=== PATIENT | female | born 1990 | race Caucasian/White ===

== ENCOUNTER → 2018-05-13 | Outpatient (CLI) | payer MEDICAID ==
[2018-05-13 10:47] LABS: Basophils % (A) 0 %; Eosinophils # (A) 0.2 k/uL (0-0.7); Eosinophils % (A) 3 %; HCT 46.2 % (34.0-46.0); HGB 15.1 gm/dL (11.4-16.0); Lymphocytes % (A) 17 %; MCH 30.2 pg (25.0-35.0); MCHC 32.6 g/dL (31.0-37.0); MCV 92.6 fL (80.0-100.0); Mean Platelet Volume 11.1; Monocytes # (A) 0.3 k/uL (0-1.0); Monocytes % (A) 5 %; Neutrophils # (A) 4.1 k/uL (1.3-7.7); Neutrophils % (A) 72 %; Platelet Count 147 k/uL (150-450); RBC 4.99 m/uL (3.80-5.40); WBC 5.7 k/uL (3.8-10.6)
[2018-05-13 12:05] LABS: Large Platelets Present
[2018-05-13 18:23] LABS: Albumin 4.4 g/dL (3.80-4.90); Albumin/Globulin Ratio 2.44 (1.60-3.17); Anion Gap 12.3 mmol/L (4.00-12.00); Calcium 9.3 mg/dL (8.7-10.3); Carbon Dioxide 24.7 mmol/L (21.6-31.8); Globulin 1.8 g/dL (1.6-3.3); LDL Cholesterol,Calculated 93.6 mg/dL (0.0-131.0); Potassium 4.1 mmol/L (3.5-5.5); Total Bilirubin 0.5 mg/dL (0.2-1.2); Total Protein 6.2 g/dL (6.2-8.2); VLDL Calculation 19.4 mg/dL (5.00-40.00)
== END | disposition home or self-care (01) ==
LOC: LABWHC1 09:48
PROVIDERS: ATTEND Family Medicine
DX: Z00.00 Encounter for general adult medical examination without abnormal findings (principal); R10.13 Epigastric pain
CPT/HCPCS: 36415; 80053; 80061; 82150; 82306; 83690; 85025

== ENCOUNTER → 2018-10-28 | Outpatient (CLI) | payer MEDICAID, BC ==
--- NOTE | 2018-10-28 12:02 | US ---
EXAMINATION TYPE: Transabdominal DATE OF EXAM: 10/28/2018 11:33 AM COMPARISON: NONE CLINICAL HISTORY: O46.91 BLEEDING,SPOTTING. Positive beta-hCG test. EXAM PERFORMED: Transabdominal (TA) EXAM MEASUREMENTS: GESTATIONAL AGE / DATING Physician Established: Not yet established Dates by LMP: LMP does not correlate Dates by First Scan: No previous Dates by Current Scan for: (9 weeks/4 days) EDC: 05/29/2019 MATERNAL ANATOMY Uterus: 10.6 x 6.1 x 7.9 cm Right Ovary: 3.1 x 2.3 x 2.3 cm Left Ovary: 2.9 x 1.5 x 1.1 cm Post CDS / Adnexa: wnl Presence of free fluid: No Presence of corpus luteal cyst: Yes, right ovary measuring 2.1 x 1.8 x 1.6 cm Presence of subchorionic bleed: Yes, measuring 1.4 x 0.5 x 0.9 cm GESTATION / SURVEY CRL: 2.7 cm (9 weeks/4 days) Yolk Sac (normal less than 6mm): 3 mm Heart Rate: 169 bpm Rhythm: Normal IUP: Viable IUP Date of LMP: Unsure Beta HcG (if available): Not available at this time Single live intrauterine gestation is confirmed as gestational sac, yolk sac, and pole are pres ent. Adjacent to gestational sac there is a tiny curvilinear fluid collection measuring 1.4 x 0.5 x 0 .9 cm towards end of study could reflect implantation bleed or small subchorionic hemorrhage. No free fluid in pelvic cul-de-sac. Both ovaries are seen. Within the right ovary there is 2.0 cm hypoechoic lesion felt to reflect corpu s luteal cyst. No suspicious extraovarian adnexal masses are noted. Preliminary results called to Dr. Quiñonez at time of exam. IMPRESSION: Single live intrauterine gestation is confirmed, mean crown-rump length is 2.7 cm corresp onding to 9 week 4 day old fetus.
[2018-10-28 12:23] LABS: HCT 39.7 % (34.0-46.0); HGB 13.7 gm/dL (11.4-16.0); MCHC 34.4 g/dL (31.0-37.0); MCV 90.2 fL (80.0-100.0); Mean Platelet Volume 12.4; RDW 12.9 % (11.5-15.5); WBC 5.4 k/uL (3.8-10.6)
[2018-10-28 12:24] LABS: African American GFR (CKD) >90 (>60 ml/min/1.73 sqM); Glucose 84 mg/dL (74-99)
[2018-10-28 13:21] LABS: Platelet Count 97 k/uL (150-450)
[2018-10-28 20:55] LABS: HIV 1 AB Non-Reactive (Non-Reactive); HIV AB P24 Non-Reactive (Non-Reactive); HIV P24 AG Non-Reactive (Non-Reactive)
[2018-10-29 07:17] LABS: Toxoplasma Antibody (IgG) <3.0 IU/mL (<7.2); Toxoplasma Antibody (IgM) <3.0 AU/mL (<8.0)
== END | disposition home or self-care (01) ==
LOC: RADUSWWP 11:04
PROVIDERS: ATTEND Obstetrics & Gynecology
DX: O46.91 Antepartum hemorrhage, unspecified, first trimester (principal); Z3A.09 9 weeks gestation of pregnancy
CPT/HCPCS: 36415; 76801; 82565; 82947; 85027; 86762; 86777; 86778; 86780; 86850; 86900; 86901; 87340; 87390

== ENCOUNTER → 2019-01-03 | Outpatient (CLI) | payer MEDICAID, BC ==
[2019-01-03 17:42] LABS: HCT 33.6 % (34.0-46.0); HGB 11.9 gm/dL (11.4-16.0); MCH 31.6 pg (25.0-35.0); MCHC 35.3 g/dL (31.0-37.0); MCV 89.5 fL (80.0-100.0); Mean Platelet Volume 11.2; RBC 3.75 m/uL (3.80-5.40); RDW 14.1 % (11.5-15.5); WBC 7.3 k/uL (3.8-10.6)
[2019-01-03 20:00] LABS: Platelet Count 98 k/uL (150-450)
--- NOTE | 2019-01-04 08:18 | US ---
EXAMINATION TYPE: US OB anatomy transabd DATE OF EXAM: 01/03/2019 COMPARISON: 10/28/2018 pelvic ultrasound HISTORY: O36.62X0 large for dates Anatomy scan TECHNIQUE: Transabdominal grayscale ultrasound of the gravid uterus. EXAM MEASUREMENTS: GESTATIONAL AGE / DATING Physician Established: (19 weeks/1 days) EDC: 05/29/2019 Dates by First Scan: (19 weeks/1 days) EDC: 05/29/2019 Dates by Current Scan for: (19 weeks/2 days) EDC: 05/28/2019 SURVEY IUP: Single PLACENTA: Anterior PREVIA: No previa MARCELLUS: 16.0 cm Normal CERVICAL LENGTH (transabdominal: norm > 3.0cm): 3.6 cm BIOMETRY LIE: Transverse lie with head maternal Rt BPD: 4.4 cm 19 weeks / 3 days HC: 16.4 cm 19 weeks / 1 days AC: 14.0 cm 19 weeks / 3 days FL: 2.9 cm 19 weeks / 0 days ESTIMATED WEIGHT IN GRAMS: 278 grams ESTIMATED WEIGHT IN LBS/OZ: lbs. 10 oz. WEIGHT PERCENTAGE BASED ON ESTABLISHED DATE: 47 % HC/AC: 1.2 Normal FL/AC: 21% HEART RATE: 158 bpm RHYTHM: Normal ANATOMY SEEN (within normal limits): * Lateral Vent (< 1 cm) 0.5 cm * Cisterna Magna (< 1.1 cm) 0.3 cm * Nuchal Fold (< 0.6 cm) 0.2 cm * Cerebellum (varies with age) 2.0 cm Choroid Plexus (bilateral) Midline Falx Cavus Septi Pellucidi Four Chamber Heart Outflow tracts: LVOT/RVOT Stomach Situs Nose / Lips Diaphragm Kidneys (bilateral) Bladder Cord Insert Three Vessel Cord Longitudinal Spine Transverse Spine Arms (bilateral) Legs (bilateral) ANATOMY SEEN (does not appear within normal limits): None ANATOMY NOT SEEN: None Single live IUP measuring 19 weeks 2 days IMPRESSION: Single live intrauterine with a sonographic age of 19 weeks and 2 days and myla mated date of delivery of 05/28/2019, concordant with menstrual age. Unremarkable anatomy ultrasound. W e percentage based on established dates of 47%. Amniotic fluid index of 16.0.
== END | disposition home or self-care (01) ==
LOC: RADUSWWP 16:17
PROVIDERS: ATTEND Obstetrics & Gynecology
DX: O36.62X0 Maternal care for excessive fetal growth, second trimester, not applicable or unspecified (principal); Z3A.19 19 weeks gestation of pregnancy
CPT/HCPCS: 36415; 76811; 85027; 86787

== ENCOUNTER → 2019-02-21 | Outpatient (CLI) | payer MEDICAID, BC ==
[2019-02-21 10:17] LABS: HGB 11.8 gm/dL (11.4-16.0); MCH 31.3 pg (25.0-35.0); MCHC 34.8 g/dL (31.0-37.0); MCV 90.1 fL (80.0-100.0); Mean Platelet Volume 11.4; Poikilocytosis Slight; RBC 3.78 m/uL (3.80-5.40); RDW 14.4 % (11.5-15.5); WBC 6.7 k/uL (3.8-10.6)
[2019-02-21 11:21] LABS: Platelet Count 95 k/uL (150-450)
== END ==
LOC: LABWHC1 08:49
PROVIDERS: ATTEND Obstetrics & Gynecology
DX: Z34.82 Encounter for supervision of other normal pregnancy, second trimester (principal); Z3A.00 Weeks of gestation of pregnancy not specified
CPT/HCPCS: 36415; 82950; 85027

== ENCOUNTER → 2019-02-24 | Outpatient (CLI) | payer MEDICAID, BC ==
[2019-02-24 13:13] LABS: Glucose 3 Hour, Gest 48 mg/dL
== END | disposition home or self-care (01) ==
LOC: LABWHC1 08:37
PROVIDERS: ATTEND Obstetrics & Gynecology
DX: O24.419 Gestational diabetes mellitus in pregnancy, unspecified control (principal); Z3A.00 Weeks of gestation of pregnancy not specified
CPT/HCPCS: 36415; 82951; 82952

== ENCOUNTER → 2019-04-26 | Outpatient (CLI) | payer MEDICAID, BC ==
[2019-04-26 16:26] LABS: HCT 36.9 % (34.0-46.0); HGB 12.3 gm/dL (11.4-16.0); MCH 29.4 pg (25.0-35.0); MCHC 33.4 g/dL (31.0-37.0); MCV 88.1 fL (80.0-100.0); Mean Platelet Volume 16.1; RBC 4.19 m/uL (3.80-5.40); RDW 13.6 % (11.5-15.5); WBC 9.5 k/uL (3.8-10.6)
[2019-04-26 16:55] LABS: Platelet Count 97 k/uL (150-450)
--- NOTE | 2019-04-27 07:57 | US ---
EXAMINATION TYPE: US OB >= 14 wk fetus DATE OF EXAM: 04/26/2019 COMPARISON: None CLINICAL HISTORY: O36.63X0 LARGE FOR DATESLarge for dates. TECHNIQUE: Transabdominal (TA) GESTATIONAL AGE / DATING Physician Established: (35 weeks/2 days) EDC: 05/29/2019 Dates by LMP: 35 weeks/2 days) EDC: 05/29/2019 Dates by First Scan: (9 weeks/3 days) EDC: 04/30/2019 Dates by Current Scan: (35 weeks/1 days) EDC: 05/30/2019 SURVEY IUP: Single PLACENTA: Anterior PREVIA: No Previa MARCELLUS: cm 13.70 cm CERVICAL LENGTH (transabdominal: norm > 3.0cm): Not well visualized due to shadowing. BIOMETRY PRESENTATION: Vertex LIE: Longitudinal BPD: 9.1 cm 37 weeks / 0 days HC: 26.3 cm 28 weeks / 5 days AC: 35.5 cm 39 weeks / 3 days FL: 6.8 cm 35 weeks / 0 days ESTIMATED WEIGHT IN GRAMS: 3031 grams ESTIMATED WEIGHT IN LBS/OZ: 6 lbs. 11 oz. WEIGHT PERCENTAGE BASED ON ESTABLISHED DATES: 87% HC/AC: 0.74cm Normal FL/AC: 19% Normal HEART RATE: 129 bpm RHYTHM: Normal IMPRESSION: Single live intrauterine with a sonographic age of 35 weeks and 1 day and estim ated date of delivery of 05/30/2019. Weight percentage based on established dates of 87%. Amniotic flui d adnexa 13.7.
== END | disposition home or self-care (01) ==
LOC: RADUSWWP 15:43
PROVIDERS: ATTEND Obstetrics & Gynecology
DX: O36.63X0 Maternal care for excessive fetal growth, third trimester, not applicable or unspecified (principal); Z34.83 Encounter for supervision of other normal pregnancy, third trimester; Z3A.35 35 weeks gestation of pregnancy
CPT/HCPCS: 36415; 76805; 85027

== ENCOUNTER → 2019-05-09 | Outpatient (CLI) | payer MEDICAID, BC ==
--- NOTE | 2019-05-09 16:18 | US ---
EXAMINATION TYPE: US OB >= 14 wk fetus DATE OF EXAM: 05/09/2019 COMPARISON: US 04/26/19 CLINICAL HISTORY: 29-year-old female O36.63X0 large for dates, 3rd Trimester TECHNIQUE: Transabdominal (TA) FINDINGS: GESTATIONAL AGE / DATING Physician Established: (37 weeks/1 days) EDC: 05/29/2019 Dates by LMP: 08/22/18 (37 weeks/1 days) EDC: 05/29/2019 Dates by First Scan: (37 weeks/1 days) EDC: 05/29/2019 Dates by Current Scan: (36 weeks/3 days, 3 days less growth than expected from 04/26/2019) EDC: 06/02/2019 Beta HCG (if available): Not available SURVEY IUP: Single PLACENTA: Anterior PREVIA: No Previa MARCELLUS: 19.7 cm Normal CERVICAL LENGTH (transabdominal: norm > 3.0cm): 3.0 cm BIOMETRY PRESENTATION: Vertex LIE: Longitudinal BPD: 9.2 cm 37 weeks / 2 days HC: 32.1 cm 36 weeks / 1 days AC: 34.9 cm 38 weeks / 5 days FL: 7.0 cm 36 weeks / 0 days ESTIMATED WEIGHT IN GRAMS: 3279 grams ESTIMATED WEIGHT IN LBS/OZ: 7 lbs. 4 oz. WEIGHT PERCENTAGE BASED ON ESTABLISHED DATES: 71.5% HC/AC: 0.92 Normal FL/AC: 20.2 Normal HEART RATE: 139 bpm RHYTHM: Normal IMPRESSION: Single lead intrauterine with estimated gestational age of 37 weeks 1 day by LMP. Current u ltrasound biometry is slightly smaller but concordant (36 weeks 3 days) placing the child at the 72nd percentile for weight but with 3 days less growth than expected from 04/26/2019.
== END | disposition home or self-care (01) ==
LOC: RADUSWWP 14:56
PROVIDERS: ATTEND Obstetrics & Gynecology
DX: O36.63X0 Maternal care for excessive fetal growth, third trimester, not applicable or unspecified (principal); Z3A.37 37 weeks gestation of pregnancy
CPT/HCPCS: 76805

== ENCOUNTER 2019-05-29 11:40 | Inpatient (IN) | payer MEDICAID, BC ==
[2019-05-31] MEDS ORDERED: CARBOPROST TROMETHAMINE 250 MCG/ML 1 ML AMP IM PRN (05:56)
[2019-05-31] MEDS ORDERED: LIDOCAINE 0.5% (PF) 5 MG/ML (50 ML SDV) SQ PRN (05:56)
[2019-05-31] MEDS ORDERED: METHYLERGONOVINE 0.2 MG/ML 1 ML AMP IM PRN (05:56)
[2019-05-31] MEDS ORDERED: OXYTOCIN 10 UNIT/ML 1 ML VIAL IM PRN (05:56)
[2019-05-31] MEDS ORDERED: OXYTOCIN 30 UNITS/500 ML NS 30 UNIT in SALINE 1 500ML.BAG IV SCH (05:56)
[2019-05-31] MEDS ORDERED: TERBUTALINE 1 MG/ML VIAL SQ PRN (05:56)
[2019-05-31] MEDS: LACTATED RINGERS 1,000 ML IV SCH ×2 (06:12→13:33)
[2019-05-31 06:34] LABS: HCT 40.9 % (34.0-46.0); HGB 13.5 gm/dL (11.4-16.0); MCH 29.2 pg (25.0-35.0); MCV 88.4 fL (80.0-100.0); Mean Platelet Volume 16.1; Platelet Count 108 k/uL (150-450); RBC 4.63 m/uL (3.80-5.40); RDW 13.3 % (11.5-15.5); WBC 8.9 k/uL (3.8-10.6)
--- NOTE | 2019-05-31 06:34 | P.HPOB ---
History of Present Illness H&P Date: 05/31/19 Chief Complaint: Requested induction of labor. This patient is a pleasant 29-year-old 3 para 2 female estimated date of confinement 05/29/2019 estimated gestational age 40-2/7 weeks who presents to labor and delivery for requested induction of labor. Patient's is been complicated by known thrombocytopenia. This is a chronic condition for this patient and her platelets have never dipped below 95. This is also been present with previous deliveries. Patient's care has otherwise been uncomplicated. Review of Systems Genitourinary: Reports Menstruation: Reports amenorrhea Past Medical History Additional Past Medical History / Comment(s): Mild thrombocytopenia, associated. This is a chronic condition and did not significant enough to warrant treatment. History of Any Multi-Drug Resistant Organisms: MRSA Date of last positivie culture/infection: 2015 MDRO Source:: Buttocks Additional Past Surgical History / Comment(s): Oral surgery Past Anesthesia/Blood Transfusion Reactions: No Reported Reaction Past Psychological History: No Psychological Hx Reported Smoking Status: Never smoker Past Alcohol Use History: None Reported Past Drug Use History: None Reported - Past Family History Father Family Medical History: No Reported History Medications and Allergies Home Medications Medication Instructions Recorded Confirmed Type Pnv,Calcium 72/Iron/Folic Acid 1 tab PO DAILY 11/02/14 05/31/19 History [ Plus Tablet] Omeprazole 20 mg PO DAILY 05/31/19 05/31/19 History Allergies Allergy/AdvReac Type Severity Reaction Status Date / Time No Known Allergies Allergy Verified 05/31/19 05:56 Exam Vital Signs Temp Pulse Resp BP Pulse Ox 05/31/19 06:01 96.5 F L 76 16 116/71 97 Intake and Output 05/30/19 05/30/19 05/31/19 14:59 22:59 06:59 Other: # Voids 1 Weight 72.575 kg - OBG Physical Exam Abdomen: bowel sounds normal, no diffuse tenderness, no bruit present, no guarding noted, no hepatomegaly, no splenomegaly, no mass Vulva: both: normal Vagina: normal moisture, no discharge Cervix: no lesion (Cervix is 250% effaced and -2 station), no discharge Uterus: enlarged (Fundal height is 40 cm) Results blood work shows she is B positive, rubella immune, RPR nonreactive, hepatitis B negative, HIV is nonreactive, Glucola was abnormal with a very no rmal three-hour gtt., group B strep was negative, ultrasounds have been normal, platelets have ranged from 95-98. Assessment and Plan Assessment: This is a pleasant 29-year-old 3 para 2 female 40-2/7 weeks gestation who presents to labor and delivery for requested induction of labor. Patient also has known thrombocytopenia and we'll check her platelets this morning. She understands she very well may not be a candidate for regional anesthetic. At this point plan is induction of labor and anticipate vaginal delivery. (1) 40 weeks gestation of Current Visit: Yes Status: Acute Code(s): Z3A.40 - 40 WEEKS GESTATION OF SNOMED Code(s): 85249265 (2) Elective induction of labor planned Current Visit: No Status: Acute Code(s): XXU7826 - SNOMED Code(s): 113990479 (3) Thrombocytopenia affecting , antepartum Current Visit: No Status: Chronic Code(s): O99.119 - OTH DIS OF BLD/BLD-FORM ORG/IMMUN MECHNSM COMP PREG,UNSP TRI SNOMED Code(s): 022028513
[2019-05-31 07:27] LABS: Band Neutrophils % 3 %; Large Platelets Present; Lymphocytes # (M) 1.96 k/uL (1.0-4.8); Monocytes # (M) 0.27 k/uL (0-1.0); Neutrophils % (M) 72 %; Nucleated Red Blood Cells 0 /100 WBC (0-0); Total Cells Counted 100
[2019-05-31] MEDS ORDERED: BUTORPHANOL 1 MG/ML 1 ML VIAL IV PRN (11:50)
[2019-05-31] MEDS ORDERED: ACETAMINOPHEN TAB 325 MG TAB PO PRN (14:36)
[2019-05-31] MEDS ORDERED: diphenhydrAMINE 50 MG/ML 1 ML VIAL IVP PRN (14:36)
[2019-05-31] MEDS ORDERED: ZOLPIDEM 5 MG TAB PO PRN (14:36)
[2019-05-31] MEDS ORDERED: OXYTOCIN 20 UNITS/1000 ML NS 1,000 ML IV SCH (14:36)
[2019-05-31] MEDS ORDERED: HYDROCORTISONE 2.5% RECTAL CREAM 30 GM TUBE RECTAL PRN (14:36)
[2019-05-31] MEDS ORDERED: BISACODYL 10 MG SUPP RECTAL PRN (14:36)
[2019-05-31] MEDS ORDERED: SIMETHICONE 80 MG CHEWABLE PO PRN (14:36)
[2019-05-31] MEDS ORDERED: BENZOCAINE/MENTHOL SPRAY 1 GM/SPRAY AEROSOL TOPICAL PRN (14:36)
[2019-05-31] MEDS ORDERED: WITCH HAZEL 1 EACH MED..PAD TOPICAL PRN (14:36)
[2019-05-31] MEDS ORDERED: LANOLIN CREAM 5 GM TUBE TOPICAL PRN (14:36)
[2019-05-31] MEDS ORDERED: diphenhydrAMINE 25 MG CAP PO PRN (14:36)
[2019-05-31] MEDS: IBUPROFEN 600 MG TAB PO PRN ×2 (14:40→22:12)
--- NOTE | 2019-05-31 18:43 | P.PROBDLV ---
Vaginal Delivery Note - . Vaginal Delivery Note: Normal vaginal delivery viable male infant Apgars 9 and 9 delivery time is 1400 hrs. Please see dictated H&P for intimate details of this patient's admission. Brief summary this is a pleasant 29-year-old 3 para 2 female estimated gestational age 40-2/7 weeks who presents to labor and delivery for induction of labor. On admission patient is 2 cm dilated has artificial rupture membranes for clear fluid. Labor is induced with Pitocin per protocol. Platelets on admission are actually elevated above her normal at 108. Patient's labor progresses and she gets to complete and pushes for approximately 5 minutes. Patient pushes the head to the perineum and the posterior perineum is supported and we have controlled delivery of the 's head over the intact perineum. Mouth and nares are bulb suctioned. There is no evidence of a nuchal cord. With gentle downward traction we then have deliver the anterior posterior shoulder and rest this 's body. Infant is late on the mother's abdomen. Vigorous viable male infant Apgars are 9 and 9 delivery time is 1400 hrs. After delivery of the the umbilical cords allowed to quit pulsating is then doubly clamped and cut. The placenta is then spontaneously delivered intact and then Pitocin is started. Placenta appears to be trivascular. Inspection of perineum shows a first-degree laceration which is repaired with 3-0 Vicryl usual fashion. Excellent reapproximation is noted. Estimated blood loss from delivery was approximately 200 mL. There are no complications. Infant and mother stable delivery room. All counts are correct 3.
[2019-05-31] MEDS: SENNOSIDES-DOCUSATE SODIUM 1 EACH TAB PO SCH (19:41)
[2019-06-01] MEDS: IBUPROFEN 600 MG TAB PO PRN ×2 (06:07→11:46)
--- NOTE | 2019-06-01 06:49 | P.PNOBGVD ---
Subjective - Subjective Patient reports: Reports appetite normal, Reports voiding normally, Reports pain well controlled, Reports ambulating normally : doing well Objective - Latest Vital Signs Latest vital signs: Vital Signs Temp Pulse Resp BP 06/01/19 00:00 97.9 F 80 16 105/64 05/31/19 20:00 97.8 F 85 16 122/72 05/31/19 16:15 83 16 117/73 05/31/19 15:40 83 16 118/67 05/31/19 15:14 97.3 F L 86 16 121/69 05/31/19 15:05 83 16 121/64 05/31/19 14:48 90 16 123/65 05/31/19 14:31 94 16 124/64 05/31/19 14:15 97.3 F L 98 16 105/67 Intake and Output 05/31/19 05/31/19 06/01/19 14:59 22:59 06:59 Output Total 200 Balance -200 Output: Estimated Blood Loss 200 Other: # Voids 1 - Exam Lungs: bilateral: normal Chest: Normal S1, Normal S2 Extremities: Present: normal Abdomen: Present: normal appearance, soft Uterus: Present: normal, firm - Labs Labs: Abnormal Lab Results - Last 24 Hours (Table) 05/31/19 Range/Units 06:00 Plt Count 108 L (150-450) k/uL Assessment and Plan Assessment: day #1. Patient is resting without complaints. Vital signs are stable and she is afebrile and she wishes to go home. Uterus is firm nontender she's having normal lochia. CBC is pending at this time. Plan is to continue routine care, check a CBC, most likely discharge home later today (1) 40 weeks gestation of Current Visit: Yes Status: Acute Code(s): Z3A.40 - 40 WEEKS GESTATION OF SNOMED Code(s): 66428424 (2) Elective induction of labor planned Current Visit: No Status: Acute Code(s): QNE6418 - SNOMED Code(s): 229432999 (3) Thrombocytopenia affecting , antepartum Current Visit: No Status: Chronic Code(s): O99.119 - OTH DIS OF BLD/BLD-FORM ORG/IMMUN MECHNSM COMP PREG,UNSP TRI SNOMED Code(s): 277549747
--- NOTE | 2019-06-01 07:04 | P.DS ---
Providers Date of admission: 05/31/19 05:50 Expected date of discharge: 06/01/19 Attending physician: Antony Quiñonez Primary care physician: Stated None - Discharge Diagnosis(es) (1) 40 weeks gestation of Current Visit: Yes Status: Acute (2) Elective induction of labor planned Current Visit: No Status: Acute (3) Thrombocytopenia affecting , antepartum Current Visit: No Status: Chronic Hospital Course: Please see dictated H&P for intimate details of this patient's admission. In brief summary is a pleasant 29-year-old 3 para 2 female 40-2/7 weeks gestation admitted to labor and delivery for induction of labor. Patient is admitted and her platelets are 108. She has known chronic thrombocytopenia. Patient has uncomplicated induction of labor goes on have a vaginal delivery viable male . Please dictated delivery note. day 1 patient's felt be stable for discharge home follow up with me in 6 weeks. Procedures: Induction of labor and normal vaginal delivery Patient Condition at Discharge: Good Plan - Discharge Summary New Discharge Prescriptions: New Ibuprofen [Motrin] 600 mg PO Q6HR PRN #30 tab PRN Reason: Mild Pain Or Fever >= 100.5 No Action Pnv,Calcium 72/Iron/Folic Acid [ Plus Tablet] 1 tab PO DAILY Omeprazole 20 mg PO DAILY Discharge Medication List Pnv,Calcium 72/Iron/Folic Acid [ Plus Tablet] 1 tab PO DAILY 11/02/14 [History] Omeprazole 20 mg PO DAILY 05/31/19 [History] Ibuprofen [Motrin] 600 mg PO Q6HR PRN #30 tab 06/01/19 [Rx] Follow up Appointment(s)/Referral(s): Antony Quiñonez MD [STAFF PHYSICIAN] - 07/11/19 9:30 am Patient Instructions/Handouts: Vaginal Delivery (DC) Activity/Diet/Wound Care/Special Instructions: No intercourse or anything per vagina for 6 weeks. Please call if any fever, chills, excessive vaginal bleeding, and/or abdominal pain. Discharge Disposition: HOME SELF-CARE
[2019-06-01 07:14] LABS: HCT 35.3 % (34.0-46.0); HGB 11.7 gm/dL (11.4-16.0); MCH 29.3 pg (25.0-35.0); MCHC 33.3 g/dL (31.0-37.0); MCV 88.1 fL (80.0-100.0); Mean Platelet Volume 16.5; Platelet Count 109 k/uL (150-450); RDW 13.2 % (11.5-15.5); WBC 11.4 k/uL (3.8-10.6)
[2019-06-01 08:55] VITALS: BP 118/80; PULSE 82; RESP 18; TEMP 97.8
[2019-06-01 09:08] LABS: Eosinophils # (M) 0.11 k/uL (0-0.7); Lymphocytes # (M) 1.71 k/uL (1.0-4.8); Monocytes # (M) 0.34 k/uL (0-1.0); Neutrophils # (M) 9.23 k/uL (1.3-7.7); Neutrophils % (M) 81 %; Nucleated Red Blood Cells 0 /100 WBC (0-0); Total Cells Counted 100
[2019-06-01 09:10] LABS: Large Platelets Present
[2019-06-01] MEDS: SENNOSIDES-DOCUSATE SODIUM 1 EACH TAB PO SCH (11:46)
== END 2019-06-01 15:21 | disposition home or self-care (01) | DRG 807 ==
LOC: 4FBP 05-31 05:50
PROVIDERS: ADMIT Obstetrics & Gynecology; ATTEND Obstetrics & Gynecology
PROC: 10E0XZZ Delivery of Products of Conception, External Approach (ICD-10-PCS; principal; 2019-05-31)
PROC: 10907ZC Drainage of Amniotic Fluid, Therapeutic from Products of Conception, Via Natural or Artificial Opening (ICD-10-PCS; principal; 2019-05-31)
PROC: 0HQ9XZZ Repair Perineum Skin, External Approach (ICD-10-PCS; principal; 2019-05-31)
PROC: 3E033VJ Introduction of Other Hormone into Peripheral Vein, Percutaneous Approach (ICD-10-PCS; principal; 2019-05-31)
DX: O99.12 Other diseases of the blood and blood-forming organs and certain disorders involving the immune mechanism complicating childbirth (principal); Z37.0 Single live birth; D69.6 Thrombocytopenia, unspecified; O70.0 First degree perineal laceration during delivery; Z3A.40 40 weeks gestation of pregnancy; Z86.14 Personal history of Methicillin resistant Staphylococcus aureus infection
CPT/HCPCS: 85025; 86850; 86900; 86901

== ENCOUNTER → 2019-09-05 | Outpatient (CLI) | payer MEDICAID, BC ==
[2019-09-05 15:29] LABS: HCT 37.3 % (34.0-46.0); HGB 12.6 gm/dL (11.4-16.0); MCH 31.3 pg (25.0-35.0); MCHC 33.7 g/dL (31.0-37.0); MCV 92.9 fL (80.0-100.0); Mean Platelet Volume 14.7; Platelet Count 101 k/uL (150-450); RBC 4.02 m/uL (3.80-5.40); RDW 13.1 % (11.5-15.5); WBC 4.9 k/uL (3.8-10.6)
== END | disposition home or self-care (01) ==
LOC: LABWHC1 14:39
PROVIDERS: ATTEND Obstetrics & Gynecology
DX: D69.6 Thrombocytopenia, unspecified (principal); N92.6 Irregular menstruation, unspecified
CPT/HCPCS: 36415; 84702; 85027

== ENCOUNTER → 2019-12-29 | Outpatient (CLI) | payer MEDICAID, BC ==
[2019-12-29 10:18] LABS: HCT 39.9 % (34.0-46.0); HGB 13.5 gm/dL (11.4-16.0); MCHC 33.8 g/dL (31.0-37.0); MCV 91.5 fL (80.0-100.0); Mean Platelet Volume 13.2; RBC 4.36 m/uL (3.80-5.40); RDW 13.5 % (11.5-15.5); WBC 5.3 k/uL (3.8-10.6)
[2019-12-29 10:31] LABS: African American GFR (CKD) >90 (>60 ml/min/1.73 sqM); Glucose 83 mg/dL (74-99); Non-African American GFR(CKD) >90 (>60 ml/min/1.73 sqM)
--- NOTE | 2019-12-29 11:12 | US ---
EXAMINATION TYPE: Transabdominal DATE OF EXAM: 12/29/2019 9:16 AM COMPARISON: NONE CLINICAL HISTORY: Z36 Confirm dates. confirm dates EXAM PERFORMED: Transabdominal (TA) EXAM MEASUREMENTS: GESTATIONAL AGE / DATING Physician Established: Not yet established Dates by LMP: (14 weeks/0 days) EDC: 06/28/20 Dates by First Scan: No previous this is first scan Dates by Current Scan for: (12 weeks/5 days) EDC: 07/07/20 MATERNAL ANATOMY Uterus: 12.5 x 7.6 x 10.2cm Right Ovary: 3.0 x 1.6 x 3.3cm Left Ovary: 2.4 x 1.1 x 2.5cm Post CDS / Adnexa: appears wnl Presence of free fluid: no Presence of corpus luteal cyst: hypoechoic area right ovary = 2.0 x 1.1 x 2.0cm GESTATION / SURVEY CRL: 6.2cm (12 weeks/5 days) Yolk Sac (normal less than 6mm): 0.4cm Heart Rate: 155 bpm Rhythm: Normal IUP: Viable IUP Date of LMP: 09/22/19 Beta HcG (if available): Not available at this time IMPRESSION: Single intrauterine gestation estimated at 12 weeks 5 days gestation based on the crown-rump length. Cardiac activity measures 155 bpm.
[2019-12-29 13:17] LABS: Platelet Count 98 k/uL (150-450)
[2019-12-29 20:29] LABS: Hepatitis B Surface Antigen Non-Reactive (Non-Reactive)
[2019-12-30 04:59] LABS: Toxoplasma Antibody (IgG) <3.0 IU/mL (<7.2); Toxoplasma Antibody (IgM) <3.0 AU/mL (<8.0)
== END | disposition home or self-care (01) ==
LOC: RADUSWWP 08:56
PROVIDERS: ATTEND Obstetrics & Gynecology
DX: Z3A.12 12 weeks gestation of pregnancy (principal); Z34.81 Encounter for supervision of other normal pregnancy, first trimester
CPT/HCPCS: 36415; 76801; 82565; 82947; 85027; 86762; 86777; 86778; 86780; 86850; 86900; 86901; 87340

== ENCOUNTER → 2020-02-21 | Outpatient (CLI) | payer MEDICAID, BC ==
--- NOTE | 2020-02-22 07:20 | US ---
EXAMINATION TYPE: US OB anatomy transabd DATE OF EXAM: 02/21/2020 COMPARISON: US 12/29/2019 HISTORY: O36.62X0 large for dates Anatomy TECHNIQUE: Transabdominal (TA) EXAM MEASUREMENTS: GESTATIONAL AGE / DATING Physician Established: (20 weeks/3 days) EDC: 07/07/2020 Dates by LMP: 20 weeks/5 days) EDC: 06/28/2020 Dates by First Scan: 20 weeks/3 days) EDC: 07/07/2020 Dates by Current Scan for: (21 weeks/3 days) EDC: 06/30/2020 SURVEY IUP: Single PLACENTA: Anterior PREVIA: No previa MARCELLUS: 13.7 cm Normal CERVICAL LENGTH (transabdominal: norm > 3.0cm): 3.1 cm BIOMETRY PRESENTATION: Vertex LIE: Longitudinal BPD: 5.1 cm 21 weeks / 4 days HC: 18.6 cm 21 weeks / 0 days AC: 16.9 cm 22 weeks / 0 days FL: 3.4 cm 20weeks / 5 days ESTIMATED WEIGHT IN GRAMS: 415 grams ESTIMATED WEIGHT IN LBS/OZ: 0 lbs. 15 oz. WEIGHT PERCENTAGE BASED ON ESTABLISHED DATE: 89 % HC/AC: 1.1 Normal FL/AC: 20% Normal HEART RATE: 143 bpm RHYTHM: Normal ANATOMY SEEN (within normal limits): * Lateral Vent (< 1 cm) 0.7 cm * Cisterna Magna (< 1.1 cm) 0.5 cm * Nuchal Fold (< 0.6 cm) 0.6 cm * Cerebellum (varies with age) 1.9 cm Choroid Plexus (bilateral) Midline Falx Cavus Septi Pellucidi Four Chamber Heart Outflow tracts: LVOT/RVOT Stomach Situs Nose / Lips Diaphragm Kidneys (bilateral) Bladder Cord Insert Three Vessel Cord Longitudinal Spine Transverse Spine Arms (bilateral) Legs (bilateral) Viable IUP, measurements consistent with dates. IMPRESSION: Single viable intrauterine corresponding to an ultrasound age 21 weeks 3 days with estimate d date of delivery June 30, 2020
== END | disposition home or self-care (01) ==
LOC: RADUSWWP 16:21
PROVIDERS: ATTEND Obstetrics & Gynecology
DX: O36.62X0 Maternal care for excessive fetal growth, second trimester, not applicable or unspecified (principal); Z3A.21 21 weeks gestation of pregnancy
CPT/HCPCS: 76811

== ENCOUNTER → 2020-03-29 | Outpatient (CLI) | payer MEDICAID, BC ==
[2020-03-29 11:40] LABS: HCT 37.6 % (34.0-46.0); HGB 12.1 gm/dL (11.4-16.0); MCH 30.5 pg (25.0-35.0); MCHC 32.3 g/dL (31.0-37.0); MCV 94.5 fL (80.0-100.0); Mean Platelet Volume 13.6; RBC 3.98 m/uL (3.80-5.40); RDW 14.4 % (11.5-15.5)
[2020-03-29 12:02] LABS: Platelet Count 95 k/uL (150-450)
== END | disposition home or self-care (01) ==
LOC: LABWHC1 09:02
PROVIDERS: ATTEND Obstetrics & Gynecology
DX: Z34.82 Encounter for supervision of other normal pregnancy, second trimester (principal)
CPT/HCPCS: 36415; 82950; 85027

== ENCOUNTER → 2020-05-22 | Outpatient (CLI) | payer MEDICAID, BC ==
[2020-05-22 19:17] LABS: HCT 33.9 % (37.2-46.3); HGB 11.7 g/dL (12.0-15.0); MCHC 34.5 g/dL (32.0-37.0); MCV 89.9 fL (80.0-97.0); Platelet Count 68 X 10*3/uL (140-440); RBC 3.77 X 10*6/uL (4.10-5.20); RDW 13.7 % (11.5-14.5); WBC 11.16 X 10*3/uL (4.50-10.00)
== END | disposition home or self-care (01) ==
LOC: LABT 14:17
PROVIDERS: ATTEND Obstetrics & Gynecology
DX: Z34.83 Encounter for supervision of other normal pregnancy, third trimester (principal); O99.111 Other diseases of the blood and blood-forming organs and certain disorders involving the immune mechanism complicating pregnancy, first trimester
CPT/HCPCS: 36415; 85027; 86787

== ENCOUNTER → 2020-05-30 | Outpatient (CLI) | payer MEDICAID, BC ==
[2020-05-30 17:57] LABS: HCT 36.6 % (37.2-46.3); HGB 11.8 g/dL (12.0-15.0); MCH 29.8 pg (27.0-32.0); MCHC 32.2 g/dL (32.0-37.0); MCV 92.4 fL (80.0-97.0); Platelet Count 60 X 10*3/uL (140-440); RBC 3.96 X 10*6/uL (4.10-5.20); RDW 13.9 % (11.5-14.5); WBC 9.06 X 10*3/uL (4.50-10.00)
== END | disposition home or self-care (01) ==
LOC: LABWHC1 09:17
PROVIDERS: ATTEND Obstetrics & Gynecology
DX: O99.113 Other diseases of the blood and blood-forming organs and certain disorders involving the immune mechanism complicating pregnancy, third trimester (principal)
CPT/HCPCS: 36415; 85027

== ENCOUNTER → 2020-06-05 | Outpatient (CLI) | payer MEDICAID, BC ==
[2020-06-05 10:43] LABS: HCT 36.7 % (34.0-46.0); HGB 12.7 gm/dL (11.4-16.0); MCH 31.1 pg (25.0-35.0); MCHC 34.7 g/dL (31.0-37.0); MCV 89.6 fL (80.0-100.0); Mean Platelet Volume 15.2; Poikilocytosis Slight; RDW 13.7 % (11.5-15.5); WBC 8.2 k/uL (3.8-10.6)
[2020-06-05 10:46] LABS: Platelet Count 60 k/uL (150-450)
== END | disposition home or self-care (01) ==
LOC: LABWHC1 09:27
PROVIDERS: ATTEND Obstetrics & Gynecology
DX: O99.113 Other diseases of the blood and blood-forming organs and certain disorders involving the immune mechanism complicating pregnancy, third trimester (principal); Z3A.00 Weeks of gestation of pregnancy not specified
CPT/HCPCS: 36415; 85027

== ENCOUNTER → 2020-06-07 | Outpatient (CLI) | payer MEDICAID, BC ==
--- NOTE | 2020-06-07 16:20 | US ---
EXAMINATION TYPE: US OB anatomy transabd DATE OF EXAM: 06/07/2020 COMPARISON: US OB Anatomy HISTORY: O36.63X0 LARGE FOR DATES Maternal ITP. TECHNIQUE: Transabdominal (TA) EXAM MEASUREMENTS: GESTATIONAL AGE / DATING Physician Established: (35 weeks/5 days) EDC: 07/07/2020 Dates by LMP: (37 weeks/0 days) EDC: 06/28/2020 Dates by First Scan: (35 weeks/5 days) EDC: 07/07/2020 Dates by Current Scan for: (35 weeks/2 days) EDC: 07/10/2020 SURVEY IUP: Single PLACENTA: anterior, venous lee seen inferiorly PREVIA: no previa MARCELLUS: 13.5 cm Normal CERVICAL LENGTH (transabdominal: norm > 3.0cm): 3.5 cm BIOMETRY PRESENTATION: cephalic LIE: long lie, spine located maternal right BPD: 8.97 cm 36 weeks / 2 days HC: 31.68 cm 35 weeks / 1 day AC: 32.42 cm 36 weeks / 2 days FL: 6.84 cm 35 weeks / 1 day ESTIMATED WEIGHT IN GRAMS: 2811.0 grams ESTIMATED WEIGHT IN LBS/OZ: 6 lbs. 3 oz. WEIGHT PERCENTAGE BASED ON ESTABLISHED DATE: 56.7 % HC/AC: 0.98 Normal FL/AC: 21.11 Normal HEART RATE: 140 bpm RHYTHM: Normal ANATOMY SEEN (within normal limits): Midline Falx Four Chamber Heart Outflow tracts: LVOT/RVOT Stomach Situs Nose / Lips Diaphragm Kidneys (bilateral) Bladder Three Vessel Cord ANATOMY NOT SEEN: due to late stage age for complete assessment, crowding, bone shadowin g noted during US survey * Lateral Vent (< 1 cm) cm * Cisterna Magna (< 1.1 cm) cm * Nuchal Fold (< 0.6 cm) cm * Cerebellum (varies with age) cm Choroid Plexus (bilateral) Cavus Septi Pellucidi Longitudinal Spine Transverse Spine Arms (bilateral) Legs (bilateral) Cord Insert Single, live IUP, 35 weeks/2 days, EDC: 07/10/2020, HR 140bpm. IMPRESSION: 1. Single intrauterine gestation estimated at 35 weeks 2 days gestation based on current ultrasound m easurements. Cardiac activity measures 140 bpm. 2. Calculated EDC based on current measurements is 07/10/2020. Correlate this with the physician estab lished EDC of 07/07/2020. 3. Maternal lee within the placenta
== END ==
LOC: RADUSWWP 08:47
PROVIDERS: ATTEND Obstetrics & Gynecology
DX: O36.63X0 Maternal care for excessive fetal growth, third trimester, not applicable or unspecified (principal); Z3A.35 35 weeks gestation of pregnancy
CPT/HCPCS: 76811

== ENCOUNTER 2020-06-25 14:46 | Outpatient (CLI) | payer MEDICAID, BC ==
[2020-06-25 15:45] VITALS: BP 114/70; PULSE 101; RESP 16; TEMP 97
== END 2020-06-25 15:20 | disposition home or self-care (01) ==
LOC: FBPOP 14:46
PROVIDERS: ATTEND Obstetrics & Gynecology
DX: O26.893 Other specified pregnancy related conditions, third trimester (principal); Z3A.38 38 weeks gestation of pregnancy
CPT/HCPCS: 59025; 84112; 99213

== ENCOUNTER 2020-06-29 05:50 | Inpatient (IN) | payer MEDICAID, BC ==
--- NOTE | 2020-06-28 08:02 | P.HPOB ---
History of Present Illness H&P Date: 06/28/20 Chief Complaint: Induction for severe thrombocytopenia. This is a pleasant 30 yr female EDC 07/07/2020 estimated gestational age 38 6/7 weeks who presents for induction secondary to severe thrombocytopenia of , probable ITP. Patients history is such that she has always had some thrombocytopenia with her pregnancies, however this her platelets went as low 52. She was referred to hematology and recommendation was to follow closely. Most recent platelets was 58. Plan is to proceed with delivery before they worsen. She has not required steroids. complicated by COVID at 20 weeks. Review of Systems Genitourinary: Reports Menstruation: Reports amenorrhea Past Medical History Additional Past Medical History / Comment(s): Gestational thrombocytopenia (suspected ITP, followed by Dr. Brown) History of Any Multi-Drug Resistant Organisms: None Reported, MRSA Date of last positivie culture/infection: 2015 MDRO Source:: Buttocks Additional Past Surgical History / Comment(s): Oral surgery Past Anesthesia/Blood Transfusion Reactions: No Reported Reaction Past Psychological History: No Psychological Hx Reported Smoking Status: Never smoker Past Alcohol Use History: None Reported Past Drug Use History: None Reported - Past Family History Father Family Medical History: No Reported History Medications and Allergies Home Medications Medication Instructions Recorded Confirmed Type Pnv,Calcium 72/Iron/Folic Acid 1 tab PO DAILY 11/02/14 06/25/20 History [ Plus Tablet] Allergies Allergy/AdvReac Type Severity Reaction Status Date / Time No Known Allergies Allergy Verified 06/25/20 15:01 Exam - OBG Physical Exam Abdomen: bowel sounds normal, no diffuse tenderness, no bruit present, no guarding noted, no hepatomegaly, no splenomegaly, no mass Vulva: both: normal Vagina: normal moisture, no discharge Cervix: no lesion (Cervix in the office was 1-2 cm / soft), no discharge Uterus: enlarged (Fundal height is 38 cm. ) Results blood work: B positive, Rubella Immune, RPR-HepB negative, Toxoplasmosis negative, Glucola 133, GBS negative, Most recent ultrasound shows normal growth and anatomy. Most recent platelets were 58 (30). Assessment and Plan Assessment: This is a pleasant 30 yr female EDC 07/07/2020 estimated gestational age 38 6/7 weeks with significant thrombocytopenia who presents for delivery due to this. Plan is STAT CBC on admission and induction of labor. Unfortunately she is not a candidate for regional anesthesia and understands the risks of bleeding. (1) 39 weeks gestation of Status: Acute Code(s): Z3A.39 - 39 WEEKS GESTATION OF SNOMED Code(s): 84381853 (2) Gestational thrombocytopenia without hemorrhage in third trimester Status: Acute Code(s): O99.113 - OTH DIS OF BLD/BLD-FORM ORG/IMMUN MECHNSM COMP PREG, 3RD TRI; D69.6 - THROMBOCYTOPENIA, UNSPECIFIED SNOMED Code(s): 280227474
[2020-06-29] MEDS ORDERED: OXYTOCIN 30 UNITS/500 ML NS 30 UNIT in SALINE 1 500ML.BAG IV SCH ×2 (06:01→14:40)
[2020-06-29] MEDS ORDERED: OXYTOCIN 10 UNIT/ML 1 ML VIAL IM PRN (06:01)
[2020-06-29] MEDS ORDERED: TERBUTALINE 1 MG/ML VIAL SQ PRN (06:01)
[2020-06-29] MEDS ORDERED: CARBOPROST TROMETHAMINE 250 MCG/ML 1 ML AMP IM PRN (06:01)
[2020-06-29] MEDS ORDERED: METHYLERGONOVINE 0.2 MG/ML 1 ML AMP IM PRN (06:01)
[2020-06-29] MEDS ORDERED: LIDOCAINE 0.5% (PF) 5 MG/ML (50 ML SDV) SQ PRN (06:01)
[2020-06-29] MEDS: LACTATED RINGERS 1,000 ML IV SCH ×2 (06:08→12:49)
[2020-06-29 07:01] LABS: Basophils % (A) 0 %; Eosinophils # (A) 0.1 k/uL (0-0.7); Eosinophils % (A) 1 %; HCT 38.9 % (34.0-46.0); Lymphocytes # (A) 2.4 k/uL (1.0-4.8); Lymphocytes % (A) 25 %; MCH 29.5 pg (25.0-35.0); MCHC 33.5 g/dL (31.0-37.0); MCV 88.1 fL (80.0-100.0); Mean Platelet Volume 16.7; Monocytes # (A) 0.5 k/uL (0-1.0); Monocytes % (A) 5 %; Neutrophils # (A) 6.4 k/uL (1.3-7.7); Neutrophils % (A) 66 %; Platelet Count 80 k/uL (150-450); RBC 4.41 m/uL (3.80-5.40); RDW 14.3 % (11.5-15.5); WBC 9.6 k/uL (3.8-10.6)
[2020-06-29 11:04] LABS: Anisocytosis (M) Present; Large Platelets Present; Poikilocytosis (M) Present
[2020-06-29] MEDS ORDERED: BUTORPHANOL 1 MG/ML 1 ML VIAL IV PRN (11:46)
[2020-06-29] MEDS ORDERED: diphenhydrAMINE 25 MG CAP PO PRN (14:40)
[2020-06-29] MEDS ORDERED: bisacodyL 10 MG SUPP RECTAL PRN (14:40)
[2020-06-29] MEDS ORDERED: HYDROCORTISONE 2.5% RECTAL CREAM 30 GM TUBE RECTAL PRN (14:40)
[2020-06-29] MEDS ORDERED: LANOLIN CREAM 5 GM TUBE TOPICAL PRN (14:40)
[2020-06-29] MEDS ORDERED: ZOLPIDEM 5 MG TAB PO PRN (14:40)
[2020-06-29] MEDS: SENNOSIDES-DOCUSATE SODIUM 1 EACH TAB PO SCH ×2 (14:40→19:51)
[2020-06-29] MEDS ORDERED: ACETAMINOPHEN TAB 325 MG TAB PO PRN (14:40)
[2020-06-29] MEDS ORDERED: SIMETHICONE 80 MG CHEWABLE PO PRN (14:40)
[2020-06-29] MEDS ORDERED: BENZOCAINE/MENTHOL SPRAY 1 GM/SPRAY AEROSOL TOPICAL PRN (14:40)
[2020-06-29] MEDS ORDERED: diphenhydrAMINE 50 MG/ML 1 ML VIAL IVP PRN (14:40)
[2020-06-29] MEDS: IBUPROFEN 600 MG TAB PO PRN (14:52)
--- NOTE | 2020-06-29 16:34 | P.PROBDLV ---
Vaginal Delivery Note - . Vaginal Delivery Note: Normal vaginal delivery viable female Apgars 9 and 9 delivery time is 1427 hrs. Please see dictated H&P for intimate details of this patient's admission. In brief summary this pleasant 30-year-old 4 para 3 female 38-6/7 weeks gestation admitted to labor and delivery for delivery secondary to severe thrombocytopenia. Patient's platelets last week were 58 this morning there are 80. Patient's found to be 2-3 cm dilated on admission with some contractions. Patient has artificial rupture membranes for clear fluid and Pitocin augmentation of labor. Labor does progress she does receive a dose of Stadol for pain control. Patient quickly gets to complete and pushes the head to the perineum. Posterior perineum was supported and we have controlled delivery of the 's head over the intact perineum. Mouth and nares are bulb suctioned. Is no evidence of a nuchal cord. With gentle downward traction we have delivery the anterior posterior shoulder and rest this 's body. This is a vigorous viable female infant Apgars are 9 and 9 delivery time is 1427 hrs. After delivery of the the umbilical cord is allowed to quit pulsating and the baby is laid on the mother's abdomen. The umbilical cords doubly clamped and cut and appears to be trivascular. The placenta is then spontaneously delivered intact. Inspection of the perineum shows small first- degree lacerations repaired with 3-0 Vicryl usual fashion. Excellent re approximation is noted. Estimated blood loss from delivery is approximately 100 mL. There are no complications. and mother are stable delivery room.
[2020-06-30] MEDS: IBUPROFEN 600 MG TAB PO PRN ×2 (03:45→11:34)
[2020-06-30] MEDS: SENNOSIDES-DOCUSATE SODIUM 1 EACH TAB PO SCH (07:41)
--- NOTE | 2020-06-30 07:51 | P.PNOBGVD ---
Subjective - Subjective Patient reports: Reports appetite normal, Reports voiding normally, Reports pain well controlled, Reports ambulating normally : doing well Objective - Latest Vital Signs Latest vital signs: Vital Signs Temp Pulse Resp BP Pulse Ox 06/30/20 00:00 98.5 F 93 14 124/80 99 06/29/20 20:00 98.1 F 88 16 124/79 98 06/29/20 16:46 84 16 120/62 06/29/20 16:16 77 16 117/71 06/29/20 16:00 97.3 F L 76 16 119/71 06/29/20 15:30 85 16 118/62 06/29/20 15:15 78 16 113/61 06/29/20 15:00 81 16 121/65 06/29/20 14:45 93 16 115/60 Intake and Output 06/29/20 06/30/20 06/30/20 22:59 06:59 14:59 Other: # Voids 0 2 - Exam Lungs: bilateral: normal Chest: Normal S1, Normal S2 Extremities: Present: normal Abdomen: Present: normal appearance, soft Uterus: Present: normal, firm Assessment and Plan Assessment: day #1. Patient is resting without complaints and wishes to go home. Vital signs are stable and she is afebrile. Uterus is firm nontender she's having normal lochia. CBC is pending at the time of this dictation. My impression this is a normal course. We will check a CBC and denise telets today. Patient has appointment with Dr. Brown next week to repeat her platelets. (1) 39 weeks gestation of Current Visit: No Status: Acute Code(s): Z3A.39 - 39 WEEKS GESTATION OF SNOMED Code(s): 12677447 (2) Gestational thrombocytopenia without hemorrhage in third trimester Current Visit: No Status: Acute Code(s): O99.113 - OTH DIS OF BLD/BLD-FORM ORG/IMMUN MECHNSM COMP PREG, 3RD TRI; D69.6 - THROMBOCYTOPENIA, UNSPECIFIED SNOMED Code(s): 994316206
--- NOTE | 2020-06-30 07:53 | P.DS ---
Providers Date of admission: 06/29/20 05:50 Expected date of discharge: 06/30/20 Attending physician: Antony Quiñonez Primary care physician: Stated None - Discharge Diagnosis(es) (1) 39 weeks gestation of Current Visit: No Status: Acute (2) Gestational thrombocytopenia without hemorrhage in third trimester Current Visit: No Status: Acute Hospital Course: Please see dictated H&P for intimate details of this patient's admission. Brief summary this pleasant 30-year-old 4 para 3 female estimated gestational age 38-6/7 weeks admitted to labor and delivery for induction of labor secondary to severe thrombocytopenia. Patient is admitted has uncomplicated induction of labor vaginal delivery viable female infant. Please see dictated delivery note. day 1 patient's felt be stable for discharge home follow up with me in 6 weeks. She'll follow-up Dr. Brown in 1 week for repeat platelet check. Procedures: Induction of labor and normal vaginal delivery Patient Condition at Discharge: Good Plan - Discharge Summary New Discharge Prescriptions: New Ibuprofen [Motrin] 600 mg PO Q6H PRN #30 tab PRN Reason: Pain No Action Pnv,Calcium 72/Iron/Folic Acid [ Plus Tablet] 1 tab PO DAILY Discharge Medication List Pnv,Calcium 72/Iron/Folic Acid [ Plus Tablet] 1 tab PO DAILY 11/02/14 [History] Ibuprofen [Motrin] 600 mg PO Q6H PRN #30 tab 06/30/20 [Rx]
[2020-06-30 08:08] LABS: Basophils % (A) 0 %; Eosinophils # (A) 0.1 k/uL (0-0.7); Eosinophils % (A) 1 %; HCT 32.3 % (34.0-46.0); Lymphocytes # (A) 1.9 k/uL (1.0-4.8); Lymphocytes % (A) 16 %; MCH 30.1 pg (25.0-35.0); MCV 88.4 fL (80.0-100.0); Monocytes # (A) 0.6 k/uL (0-1.0); Monocytes % (A) 5 %; Neutrophils # (A) 9.6 k/uL (1.3-7.7); Neutrophils % (A) 78 %; RBC 3.65 m/uL (3.80-5.40); RDW 14.2 % (11.5-15.5); WBC 12.4 k/uL (3.8-10.6)
[2020-06-30 08:10] LABS: Platelet Count 75 k/uL (150-450)
[2020-06-30 09:32] VITALS: BP 117/75; PULSE 70; RESP 18; TEMP 98.3
[2020-06-30 11:32] LABS: Large Platelets Present
== END 2020-06-30 15:30 | disposition home or self-care (01) | DRG 806 ==
LOC: 4FBP 05:50
PROVIDERS: ADMIT Obstetrics & Gynecology; ATTEND Obstetrics & Gynecology
PROC: 10E0XZZ Delivery of Products of Conception, External Approach (ICD-10-PCS; principal; 2020-06-29)
PROC: 10907ZC Drainage of Amniotic Fluid, Therapeutic from Products of Conception, Via Natural or Artificial Opening (ICD-10-PCS; 2020-06-29)
PROC: 0HQ9XZZ Repair Perineum Skin, External Approach (ICD-10-PCS; 2020-06-29)
DX: O99.12 Other diseases of the blood and blood-forming organs and certain disorders involving the immune mechanism complicating childbirth (principal); D69.3 Immune thrombocytopenic purpura; Z37.0 Single live birth; Z3A.38 38 weeks gestation of pregnancy; Z86.14 Personal history of Methicillin resistant Staphylococcus aureus infection; O70.0 First degree perineal laceration during delivery
CPT/HCPCS: 85025; 86850; 86900; 86901; 88307

== ENCOUNTER → 2021-03-12 | Outpatient (CLI) | payer MEDICAID, BC ==
--- NOTE | 2021-03-13 09:21 | US ---
EXAMINATION TYPE: US transvaginal DATE OF EXAM: 03/12/2021 COMPARISON: NONE CLINICAL HISTORY: 31-year-old female R10.2 Pelvic pain; N93.8 Dysfunctional uterine. TECHNIQUE: Transvaginal (TV). Date of LMP: 02-21-21 FINDINGS: EXAM MEASUREMENTS: Uterus: 8.2 x 3.8 x 5.5 cm Endometrial Stripe: 1.1 cm Right Ovary: 2.2 x 1.6 x 1.6 cm Left Ovary: 2.3 x 1.4 x 1.7 cm 1. Uterus: Retroverted and otherwise wnl. Small cervical nabothian cysts are noted. 2. Endometrium: wnl 3. Right Ovary: wnl 4. Left Ovary: wnl with an 8 mm dominant follicle. 5. Bilateral Adnexa: wnl 6. Posterior cul-de-sac: wnl IMPRESSION: 1. Retroverted uterus. 2. Endometrial stripe at 1.1 cm should correspond to the secretory phase of the menstrual cycle. 3. An 8 mm dominant follicle in the left ovary.
== END | disposition home or self-care (01) ==
LOC: RADUSWWP 15:44
PROVIDERS: ATTEND Obstetrics & Gynecology
DX: N85.4 Malposition of uterus (principal); N93.8 Other specified abnormal uterine and vaginal bleeding
CPT/HCPCS: 76830